=== PATIENT | female | born 1975 | race Caucasian/White ===

== ENCOUNTER 2020-02-25 10:13 | Inpatient (IN) | payer BC ==
[~2020-02-25] VITALS: Ht 154.9 cm; Wt 78.5 kg
[2020-02-25 10:23] VITALS: Ht 154.9 cm; Wt 78.5 kg
[2020-02-25 12:31] LABS: BASOPHIL % 0.1 % (0-2); PLATELET COUNT 427 x10^3mcL (130-400); RED CELL DISTRIBUTION WIDTH 13.3 % (11.5-14.5)
[2020-02-25 12:39] LABS: UA SPECIFIC GRAVITY 1.015 (1.005-1.035); microscopic required? YES; urine erythrocyte 3+ (NEGATIVE)
[2020-02-25 12:41] LABS: ALKALINE PHOSPHATASE 219 U/L (46-116); ALT/SGPT 75 U/L (14-59); AST/SGOT 35 U/L (15-37); BILIRUBIN TOTAL 1.2 mg/dL (0.20-1.00); CALCIUM 8.2 mg/dL (8.5-10.1); CARBON DIOXIDE 24.8 mmol/L (21-32); CHLORIDE SERUM 100 mmol/L (98-107); CREATININE SERUM 0.9 mg/dL (0.6-1.0); GFR1 > 60 mL/min; GLUCOSE SERUM 108 mg/dL (74-106); LACTIC DEHYDROGENASE (LDH) 201 U/L (100-190); SODIUM SERUM 136 mmol/L (136-145); TOTAL PROTEIN, SERUM 6.4 g/dL (6.4-8.2)
[2020-02-25 12:51] LABS: C REACTIVE PROTEIN 3.4 mg/dL (<=0.9)
[2020-02-25 12:52] LABS: ALBUMIN 2.4 g/dL (3.4-5.0)
[2020-02-25 15:03] LABS: CHOLESTEROL/HDL RATIO 7.8
[2020-02-25 15:18] LABS: AMPHETAMINE QUAL UR NONE DETECTED (See below)
[2020-02-26 02:46] VITALS: BP 105/59
[2020-02-26 05:55] VITALS: BP 92/56
[2020-02-26 08:30] VITALS: BP 102/59
[2020-02-26 13:00] VITALS: BP 98/62
[2020-02-26 13:34] LABS: BASOPHIL % 0.7 % (0-2); PLATELET COUNT 375 x10^3mcL (130-400); RED CELL DISTRIBUTION WIDTH 13.4 % (11.5-14.5)
[2020-02-26 13:52] LABS: ALKALINE PHOSPHATASE 175 U/L (46-116); ALT/SGPT 50 U/L (14-59); AST/SGOT 21 U/L (15-37); BILIRUBIN TOTAL 0.9 mg/dL (0.20-1.00); CALCIUM 8.4 mg/dL (8.5-10.1); CARBON DIOXIDE 23.6 mmol/L (21-32); CHLORIDE SERUM 102 mmol/L (98-107); GFR1 > 60 mL/min; GLUCOSE SERUM 119 mg/dL (74-106); POTASSIUM SERUM 3.9 mmol/L (3.5-5.1); SODIUM SERUM 137 mmol/L (136-145); TOTAL PROTEIN, SERUM 6.9 g/dL (6.4-8.2)
[2020-02-26 13:53] LABS: ALBUMIN 2.1 g/dL (3.4-5.0)
[2020-02-26 16:20] VITALS: BP 91/55
[2020-02-26 20:59] VITALS: BP 105/67
[2020-02-27 05:51] VITALS: BP 96/58
[2020-02-27 09:00] LABS: CALCIUM 8.3 mg/dL (8.5-10.1); CARBON DIOXIDE 23.4 mmol/L (21-32); CHLORIDE SERUM 103 mmol/L (98-107); CREATININE SERUM 0.9 mg/dL (0.6-1.0); GFR1 > 60 mL/min; GLUCOSE SERUM 93 mg/dL (74-106); MAGNESIUM 2.4 mg/dL (1.8-2.4); PHOSPHOROUS 3.8 mg/dL (2.5-4.9); POTASSIUM SERUM 3.5 mmol/L (3.5-5.1); SODIUM SERUM 137 mmol/L (136-145)
[2020-02-27 10:04] VITALS: BP 109/69
[2020-02-27 10:18] LABS: C REACTIVE PROTEIN 20.7 mg/dL (<=0.9)
[2020-02-27 10:40] LABS: BASOPHIL % 0.7 % (0-2); RED CELL DISTRIBUTION WIDTH 13.7 % (11.5-14.5)
[2020-02-27 10:41] LABS: PLATELET COUNT 452 x10^3mcL (130-400)
[2020-02-27 13:53] VITALS: BP 111/54
[2020-02-27 16:59] VITALS: BP 110/63
[2020-02-27 22:48] VITALS: BP 112/67
[2020-02-28 06:02] VITALS: BP 104/59
[2020-02-28 07:53] LABS: BASOPHIL % 0.7 % (0-2); RED CELL DISTRIBUTION WIDTH 13.2 % (11.5-14.5)
[2020-02-28 08:19] LABS: CALCIUM 8.2 mg/dL (8.5-10.1); CARBON DIOXIDE 23.3 mmol/L (21-32); CHLORIDE SERUM 105 mmol/L (98-107); CREATININE SERUM 0.8 mg/dL (0.6-1.0); GFR1 > 60 mL/min; GLUCOSE SERUM 88 mg/dL (74-106); MAGNESIUM 2.2 mg/dL (1.8-2.4); PHOSPHOROUS 3.4 mg/dL (2.5-4.9); POTASSIUM SERUM 3.9 mmol/L (3.5-5.1); SODIUM SERUM 140 mmol/L (136-145)
[2020-02-28 08:22] LABS: C REACTIVE PROTEIN 12.3 mg/dL (<=0.9)
[2020-02-28 08:51] LABS: PLATELET COUNT 453 x10^3mcL (130-400)
[2020-02-28 09:14] VITALS: BP 118/79
[2020-02-28 12:29] VITALS: BP 118/79
== END 2020-02-28 13:37 | disposition home or self-care (01) | DRG 760 ==
LOC: ED 10:13 → MU 13:27 → DU 13:27 → MU 23:57 → DU 02-26 02:49
PROVIDERS: Emergency Medicine; ADMIT Internal Medicine; ATTEND Internal Medicine
DX: N83.9 Noninflammatory disorder of ovary, fallopian tube and broad ligament, unspecified (principal); N39.0 Urinary tract infection, site not specified; K52.9 Noninfective gastroenteritis and colitis, unspecified; Z20.828 Contact with and (suspected) exposure to other viral communicable diseases
CPT/HCPCS: 36600; 83880; 85378; 87491; 87591; 87804; G0378; J1644; J1885; J1956; J3490; J7040; J7050; Q0092; U0003-CS